=== PATIENT | male | born 1950 | race Caucasian/White ===

== ENCOUNTER 2017-04-30 13:43 | Emergency (ER) | payer MEDICAID, MEDICARE ==
[~2017-04-30] VITALS: Ht 170.2 cm; Wt 59.1 kg
[2017-04-30 20:55] VITALS: BP 134/99
== END 2017-04-30 21:17 | disposition home or self-care (01) ==
LOC: EMS 13:44
DX: F10.239 Alcohol dependence with withdrawal, unspecified (principal); I10 Essential (primary) hypertension; F19.90 Other psychoactive substance use, unspecified, uncomplicated; F17.210 Nicotine dependence, cigarettes, uncomplicated; Z59.0 Homelessness; Y90.8 Blood alcohol level of 240 mg/100 ml or more
CPT/HCPCS: 36415; 99284; G0480